=== PATIENT | male | born 1990 | race Caucasian/White ===

== ENCOUNTER 2022-05-07 12:57 | Emergency (ER) | payer OTHER, MEDICAID, SELFPAY ==
[2022-05-07] VITALS (19 sets, daily range): BP systolic 95–147; BP diastolic 50–79; PULSE 68–90; RESP 12–24; TEMP 36.4; O2SAT 97–99; BMI 46.6
--- NOTE | 2022-05-07 14:01 | DI.RAD.S_ITS ---
PROCEDURE: XR CHEST 1V INDICATIONS: chest pain TECHNIQUE: One view of the chest was acquired. COMPARISON: [facility], CR, XR CHEST 1 VIEW, 05/11/2019, 21:55. FINDINGS: Surgical changes and devices: None. Lungs and pleura: Lungs are clear. No pleural effusions or pneumothorax. Mediastinum: Cardiac silhouette is at the upper limit of normal in size. Mediastinal and hilar contours appear similar to before. Bones and chest wall: No suspicious bony lesions. Overlying soft tissues appear unremarkable. IMPRESSION: No acute cardiopulmonary abnormality. Dictated by: García Blake M.D. on 05/07/2022 at 14:22 Approved by: García Blake M.D. on 05/07/2022 at 14:23
[2022-05-07 14:23] LABS: Add Manual Diff / Slide Review NO; Basophils Absolute Auto 0 /uL (0-100); Basophils Percent Auto 0.5 % (0-2); Eosinophils Absolute Auto 200 /uL (0-450); Eosinophils Percent Auto 2.4 % (2-4); Hemoglobin 13.7 g/dL (13.5-17.5); Lymphocytes Absolute Auto 2000 /uL (1100-4500); Lymphocytes Percent Auto 23.6 % (25-40); Mean Corpuscular HGB Conc 34.2 % (30-36); Mean Corpuscular Hemoglobin 28.5 PG (26-34); Mean Corpuscular Volume 83.4 fL (80-100); Monocytes Absolute Auto 600 /uL (0-900); Monocytes Percent Auto 7.3 % (3-14); Neutrophils Absolute Auto 5700 /uL (1500-7000); Neutrophils Percent Auto 66.2 % (50-75); Platelet Count 326 X10^3/uL (150-400); Red Blood Cell Count 4.79 X10^6/uL (4.5-5.9); Red Cell Distribution Width 13.1 % (11.6-14.8); White Blood Cell Count 8.6 X10^3/uL (4.5-11.0)
[2022-05-07 14:33] LABS: Alanine Aminotransferase 42 IU/L (<50); Albumin 4.2 g/dL (3.5-5.0); Alkaline Phosphatase 113 U/L (38-126); Aspartate Aminotransferase 39 IU/L (17-59); BUN Creatinine Ratio 15.9 (6-22); Bilirubin Total 0.3 mg/dL (0.2-1.3); Blood Urea Nitrogen 10 mg/dL (9-20); Carbon Dioxide 28 mmol/L (22-32); Chloride 103 mmol/L (98-107); Creatine Kinase 101 U/L (55-170); Estimated Glomerular Filt Rate > 60 mL/min (>60); Globulin 4.2 g/dL (1.7-4.1); Glucose 96 mg/dL (70-100); HEMOLYSIS < 15 (0-50); Lipase 43 U/L (23-300); Magnesium 2.1 mg/dL (1.6-2.3); Potassium 4.4 mmol/L (3.4-5.1); Sodium 141 mmol/L (137-145); Total Protein 8.4 g/dL (6.3-8.2)
[2022-05-07 14:44] LABS: Troponin I < 0.012 ng/mL (0.01-0.034)
--- NOTE | 2022-05-07 14:45 | ED_ITS ---
HPI - Syncope General Chief Complaint: Dizziness Stated Complaint: Collapsed Time Seen by Provider: 05/07/22 14:29 Source: patient Mode of arrival: Wheelchair Limitations: no limitations History of Present Illness HPI narrative: Patient is a 32-year-old male history of asthma presenting with a near syncopal episode. He said his kids have had upper respiratory like symptoms he if had the same for the last 3 days. Feels like he can not D pressurized or pop his ears. His tetanus was also recently diagnosed with an ear infection a. He feels like his right ear is very clogged and painful. He denies any fever or chills. He was outside in the smoke for less than 5 minutes when he got very lightheaded and felt like he might pass out. He needed to sit down. He did not pass out. He says that he does have a history of vertigo this was not like that. His symptoms now have completely resolved. No numbness tingling or weakness. Related Data Previous Rx's Medication Instructions Recorded hydrocortisone-acetic acid 1 %-2 % 5 drp EAR-RIGHT QID #10 mL 05/07/22 ear drops Allergies Allergy/AdvReac Type Severity Reaction Status Date / Time Sulfa (Sulfonamide Allergy Hives Verified 05/07/22 13:15 Antibiotics) Review of Systems Review of Systems Narrative: GENERAL: Denies chills, fatigue, malaise, fever, sweats, travel HEENT: Denies sinus pain, ear pain, sore throat, difficulty swallowing, neck pain RESPIRATORY: Denies dyspnea, cough, wheezing, hemoptysis, sputum. CARDIOVASCULAR: Denies chest pain, palpitations, orthopnea, edema GASTROINTESTINAL: Denies nausea, vomiting, abdominal pain, diarrhea, constipation, melena. : Denies dysuria, frequency, incontinence, hematuria, urinary retention, flank pain. MUSCULOSKELETAL: Denies weakness, joint pain, or bony pain SKIN: No rash, no erythema, no pruritus NEUROLOGIC: See HPI PSYCHIATRIC: No concerning psychosocial issues. 12 point review of systems is negative except for those stated above and HPI Patient History Social History Smoking Status: Never smoker Smoking Status: Never smoker alcohol intake frequency: holidays/special occasions only Substance Use Type: marijuana Exam Initial Vital Signs Initial Vital Signs: Vital Signs Temperature 97.5 F L 05/07/22 13:09 Pulse Rate 85 05/07/22 13:09 Respiratory Rate 24 10/19/22 13:09 Blood Pressure 131/79 05/07/22 13:09 Pulse Oximetry 97 05/07/22 13:09 Oxygen Delivery Method 05/07/22 13:09 GENERAL: Alert pleasant 32-year-old and in no acute distress. HEENT: Head atraumatic,EOMI, pupils reactive, face symmetric, moist mucous membranes EARS: Right canal is swollen but no significant drainage there is bilateral cerumen impaction worse on left. Re-evaluated after cerumen impaction tympanic membrane visualized on left and non erythematous right canal swollen but no drainage no erythema not significantly to CARDIOVASCULAR: Regular rate and rhythm without murmurs, rubs or gallops. RESPIRATORY: Breath sounds equal bilaterally, no wheezes rales or rhonchi. ABDOMEN: Soft, nontender. Normoactive bowel sounds all 4 quadrants. No guarding or rebound. EXTREMITIES: Normal range of motion, no clubbing or edema. Neurovascularly intact NEUROLOGICAL: Alert and oriented x4.Normal gait and speech. Cranial nerves II through XII grossly intact. Good [id number], good [id number], strength equal bilaterally, no dysarthria or aphasia, sensation in tact to soft touch bilaterally, no visual changes, no facial droop SKIN: Warm, dry, no laceration, no petechiae, no rashes or lesions. Course Orders Ordered: Discontinued Medications Carbamide Peroxide (Carbamide Peroxide Otic 15 Ml) 4 drops EAR-BOTH NOW ONE Stop: 05/07/22 15:14 Last Admin: 05/07/22 15:30 Dose: 4 drops Documented By: KB Vital Signs Vital signs: Vital Signs - 8 hr 05/07/22 13:09 05/07/22 14:16 05/07/22 14:19 Temperature 97.5 F L Pulse Rate 85 81 78 Respiratory Rate 24 19 Blood Pressure 131/79 Pulse Oximetry 97 99 98 Oxygen Delivery Method Room Air 05/07/22 14:19 05/07/22 14:20 05/07/22 14:20 Temperature Pulse Rate 77 Respiratory Rate 12 Blood Pressure 126/60 127/64 Pulse Oximetry 98 Oxygen Delivery Method 05/07/22 14:30 05/07/22 14:40 05/07/22 14:40 Temperature Pulse Rate 73 73 Respiratory Rate 16 13 Blood Pressure 123/64 Pulse Oximetry 99 98 Oxygen Delivery Method 05/07/22 14:45 05/07/22 15:00 05/07/22 15:01 Temperature Pulse Rate 72 76 Respiratory Rate 18 19 Blood Pressure 123/56 L Pulse Oximetry 99 98 Oxygen Delivery Method 05/07/22 15:01 05/07/22 15:15 05/07/22 15:20 Temperature Pulse Rate 78 72 69 Respiratory Rate 20 18 16 Blood Pressure Pulse Oximetry 99 99 99 Oxygen Delivery Method 05/07/22 15:20 05/07/22 15:30 05/07/22 15:40 Temperature Pulse Rate 90 Respiratory Rate 14 Blood Pressure 118/57 L 123/66 Pulse Oximetry 99 Oxygen Delivery Method 05/07/22 15:40 Temperature Pulse Rate 74 Respiratory Rate 18 Blood Pressure Pulse Oximetry 99 Oxygen Delivery Method MDM - Syncope Lab Data Result diagrams: 05/07/22 14:11 05/07/22 14:11 Labs: Lab Results 05/07/22 05/07/22 05/07/22 Range/Units 14:11 14:11 14:11 WBC 8.6 (4.5-11.0) X10^3/uL RBC 4.79 (4.5-5.9) X10^6/uL Hgb 13.7 (13.5-17.5) g/dL Hct 40.0 L (41-53) % MCV 83.4 (80-100) fL MCH 28.5 (26-34) PG MCHC 34.2 (30-36) % RDW 13.1 (11.6-14.8) % Plt Count 326 (150-400) X10^3/uL Neut % (Auto) 66.2 (50-75) % Lymph % (Auto) 23.6 L (25-40) % Dickey % (Auto) 7.3 (3-14) % Eos % (Auto) 2.4 (2-4) % Baso % (Auto) 0.5 (0-2) % Neut # (Auto) 5700 (5175-3540) /uL Lymph # (Auto) 2000 (1928-9133) /uL Dickey # (Auto) 600 (0-900) /uL Eos # (Auto) 200 (0-450) /uL Baso # (Auto) 0 (0-100) /uL PT 13.2 H (10.1-12.7) SECONDS INR 1.2 (0.9-1.3) Sodium 141 (137-145) mmol/L Potassium 4.4 (3.4-5.1) mmol/L Chloride 103 (98-107) mmol/L Carbon Dioxide 28 (22-32) mmol/L BUN 10 (9-20) mg/dL Creatinine 0.63 L (0.66-1.25) mg/dL Estimated GFR > 60 (>60) mL/min BUN/Creatinine Ratio 15.9 (6-22) Glucose 96 (70-100) mg/dL Calcium 9.0 (8.4-10.2) mg/dL Magnesium 2.1 (1.6-2.3) mg/dL Total Bilirubin 0.3 (0.2-1.3) mg/dL AST 39 (17-59) IU/L ALT 42 (<50) IU/L Alkaline Phosphatase 113 (38-126) U/L Total Creatine Kinase 101 (55-170) U/L CK-MB (CK-2) 0.64 (<2.37) ng/mL CK-MB (CK-2) Rel Index 0.6 L (1.5-5.0) % Troponin I < 0.012 (0.01-0.034) ng/mL Total Protein 8.4 H (6.3-8.2) g/dL Albumin 4.2 (3.5-5.0) g/dL Globulin 4.2 H (1.7-4.1) g/dL Albumin/Globulin Ratio 1.0 (1.0-2.8) Lipase 43 (23-300) U/L SARS-CoV-2 (PCR) (Negative) 05/07/22 Range/Units 15:17 WBC (4.5-11.0) X10^3/uL RBC (4.5-5.9) X10^6/uL Hgb (13.5-17.5) g/dL Hct (41-53) % MCV (80-100) fL MCH (26-34) PG MCHC (30-36) % RDW (11.6-14.8) % Plt Count (150-400) X10^3/uL Neut % (Auto) (50-75) % Lymph % (Auto) (25-40) % Dickey % (Auto) (3-14) % Eos % (Auto) (2-4) % Baso % (Auto) (0-2) % Neut # (Auto) (7984-4916) /uL Lymph # (Auto) (5149-6962) /uL Dickey # (Auto) (0-900) /uL Eos # (Auto) (0-450) /uL Baso # (Auto) (0-100) /uL PT (10.1-12.7) SECONDS INR (0.9-1.3) Sodium (137-145) mmol/L Potassium (3.4-5.1) mmol/L Chloride (98-107) mmol/L Carbon Dioxide (22-32) mmol/L BUN (9-20) mg/dL Creatinine (0.66-1.25) mg/dL Estimated GFR (>60) mL/min BUN/Creatinine Ratio (6-22) Glucose (70-100) mg/dL Calcium (8.4-10.2) mg/dL Magnesium (1.6-2.3) mg/dL Total Bilirubin (0.2-1.3) mg/dL AST (17-59) IU/L ALT (<50) IU/L Alkaline Phosphatase (38-126) U/L Total Creatine Kinase (55-170) U/L CK-MB (CK-2) (<2.37) ng/mL CK-MB (CK-2) Rel Index (1.5-5.0) % Troponin I (0.01-0.034) ng/mL Total Protein (6.3-8.2) g/dL Albumin (3.5-5.0) g/dL Globulin (1.7-4.1) g/dL Albumin/Globulin Ratio (1.0-2.8) Lipase (23-300) U/L SARS-CoV-2 (PCR) Negative (Negative) Imaging Data Chest x-ray: Radiologist's Impression: : Esvin Collins MR#: [id number] : 1990 Acct:[id number] Age/Sex: 32 / M Date of Service: 05/07/22 Loc: ED Accession Number: [id number] ?? Procedure: XR chest 1V Ordering Provider: Farnaz Duran D.O. PROCEDURE:? XR CHEST 1V ? INDICATIONS:? chest pain ? TECHNIQUE:? One view of the chest was acquired.? ? COMPARISON:? [facility], CR, XR CHEST 1 VIEW, 05/11/2019, 21:55. ? FINDINGS:? ? Surgical changes and devices:? None.? ? Lungs and pleura:? Lungs are clear.? No pleural effusions or pneumothorax.? ? Mediastinum:? Cardiac silhouette is at the upper limit of normal in size.? Mediastinal and hilar contours appear similar to before. ? Bones and chest wall:? No suspicious bony lesions.? Overlying soft tissues appear unremarkable.? ? IMPRESSION:? No acute cardiopulmonary abnormality. ? ? Dictated by: García Blake M.D. on 05/07/2022 at 14:22 ? ? Approved by: García Blake M.D. on 05/07/2022 at 14:23 ? ECG Data Interpretation: Sinus rhythm rate 82 WV interval 160 QRS [address] changes T-wave inversion noted in lead 3 MDM Narrative Medical decision making narrative: Patient had episode of dizziness he did not pass out. Says that he has had many episodes of dizziness in the past this was only different to the had some right ear pain and some he was quite worried about. Ears are re-evaluated after irrigation rate is the tympanic membrane is still not visualize account is quite swollen there is no gross drainage to suggest otitis externa however with his pain and swelling of his canal will treat him with hydrocortisone otic drops. Blood work is overall reassuring he has no focal deficits to warrant a head CT at this time. Discharge Plan Departure Patient Disposition: Home Clinical Impression: Benign paroxysmal positional vertigo, Otitis externa Instructions: DI for Otitis Externa, DI for Dizziness-Nonvertigo Activity Restrictions/Additional Instructions: *You have been diagnosed with otitis externa, non vertigo dizziness *What to do: At this time your right ear canal is quite swollen. I prescribed some drops which may help with that. He probably also have an upper respiratory infection supportive care only with fluids. *Continue to take medications as directed 5 drops in right ear 4 times a day for 7 *Follow up with your primary care provider in 2-3 days or call [phone] *Return to ER if you should have increasing dizziness falls passing out chest pain or any new, worsening or concerning symptoms Prescriptions: New hydrocortisone-acetic acid 1-2 % drops 5 drp EAR-RIGHT QID Qty: 10 0RF Visit Report Forms: Patient Portal/API
[2022-05-07 14:46] LABS: INR 1.2 (0.9-1.3); Prothrombin Time 13.2 SECONDS (10.1-12.7)
[2022-05-07 14:48] LABS: CKMB % Relative Index 0.6 % (1.5-5.0); Creatine Kinase MB 0.64 ng/mL (<2.37)
[2022-05-07] MEDS: CARBAMIDE PEROXIDE OTIC 15 ML 4 DROPS EAR-BOTH (15:30)
[2022-05-07 15:56] LABS: COVID19 -Nasal RAPID Negative (Negative)
--- NOTE | 2022-05-07 16:12 | PC.NURSE ---
debrox to both ears after irrigation
== END 2022-05-07 16:55 | disposition home or self-care (01) ==
PROVIDERS: Emergency Provider Emergency Medicine
DX: H81.11 Benign paroxysmal vertigo, right ear (principal); H66.91 Otitis media, unspecified, right ear; Z20.822 Contact with and (suspected) exposure to COVID-19
CPT/HCPCS: 36415; 69209; 71045; 80053; 82550; 82553; 83690; 83735; 84484; 85025; 85610; 87635; 93005; 93010; 99284; C9803